=== PATIENT | female | born 1970 | race Two or more races ===

== ENCOUNTER 2023-11-01 15:56 | Emergency (ER) | payer OTHER ==
[~2023-11-01] VITALS: Ht 162.6 cm; Wt 64.0 kg
[2023-11-01 21:14] VITALS: BP 114/60; PULSE 70; RESP 16; TEMP 98.3; O2SAT 98
[2023-11-01] MEDS ORDERED: ACETAMINOPHEN 325 MG TAB PO ONE (21:15)
[2023-11-01] MEDS ORDERED: ACET500T58 PO (21:18)
== END 2023-11-01 23:48 | disposition home or self-care (01) ==
LOC: ER 15:56
DX: S46.911A Strain of unspecified muscle, fascia and tendon at shoulder and upper arm level, right arm, initial encounter (principal); S70.01XA Contusion of right hip, initial encounter; S20.211A Contusion of right front wall of thorax, initial encounter; V43.62XA Car passenger injured in collision with other type car in traffic accident, initial encounter; Y93.89 Activity, other specified; Y92.410 Unspecified street and highway as the place of occurrence of the external cause; Y99.8 Other external cause status
CPT/HCPCS: 71101; 73030; 73502